=== PATIENT | male | born 1950 | race Two or more races ===

== ENCOUNTER 2016-12-18 10:14 | Outpatient (CLI) | payer MEDICARE, BC ==
[~2016-12-18 10:14] MED LIST: ASPI81TA2 PO; BUPR300T54 PO; CARV6.252 PO; CHOL100044 PO; GEMF600T3 PO; HYDR25TA4 PO; Hydralazine Hcl PO; Hydrochlorothiazide PO; Isosorbide Dinitrate PO; LISI20TA61 PO; MECL-138 PO; METF850T2 PO; METH5TAB6 PO; TRAZ-144 PO
== END 2016-12-18 23:59 | disposition home or self-care (01) ==
LOC: US 10:14
PROVIDERS: ATTEND Internal Medicine Hematology & Oncology
DX: N28.1 Cyst of kidney, acquired (principal); N28.89 Other specified disorders of kidney and ureter; N40.0 Benign prostatic hyperplasia without lower urinary tract symptoms; N39.43 Post-void dribbling; M81.0 Age-related osteoporosis without current pathological fracture
CPT/HCPCS: 76770-TC

== ENCOUNTER 2017-01-24 19:05 | Emergency (ER) | payer MEDICARE, BC ==
[~2017-01-24] VITALS: Ht 177.8 cm; Wt 90.7 kg
--- NOTE | 2017-01-24 19:40 | NUR ---
PT AMBULATORY TO ER BED 8 PT C/O 2ND RIGHT FINGER SWELLING X 2 DAYS PT DENIES TRAUMA OR INJURY. PT AOX4 RR EVEN AND UNLABORED. NO SOB NOTED. NAD NOTED. NO NVD AT THIS TIME. PT NOT DIAPHORETIC. PT WAITING FOR MD HAYNES.
--- NOTE | 2017-01-24 19:43 | NUR ---
DR. SMITH AT BEDSIDE FOR EVAL.
[2017-01-24] MEDS ORDERED: TRAMADOL HCL 50 MG TABLET PO ONE (20:00)
[2017-01-24 20:06] LABS: BASOPHILS % (AUTO) 0.4 % (0.0-2.0); EOSINOPHILS # (AUTO) 0.1 /CMM (0.0-0.7); EOSINOPHILS % (AUTO) 1.4 % (0.0-6.0); HEMATOCRIT 42 % (39-51); HEMOGLOBIN 13.4 g/dL (13.5-17.5); LYMPHOCYTES # (AUTO) 1.9 /CMM (0.8-4.8); LYMPHOCYTES % (AUTO) 30.7 % (20.0-44.0); MEAN CORPUSCULAR HEMOGLOBIN 27 PG (26.0-33.0); MEAN CORPUSCULAR HGB CONC 32 g/dl (31.0-36.0); MEAN CORPUSCULAR VOLUME 84 fL (80-96); MONOCYTES # (AUTO) 0.5 /CMM (0.1-1.30); NEUTROPHILS # (AUTO) 3.7 /CMM (1.8-8.9); NEUTROPHILS % (AUTO) 59.5 % (43.0-81.0); PLATELET COUNT (AUTO) 227 /CMM (150-450); RED BLOOD CELL COUNT(AUTO) 5.01 MIL/uL (4.5-6.0); WHITE BLOOD COUNT (AUTO) 6.2 K/uL (4.3-11.0)
[2017-01-24] MEDS ORDERED: TRAMADOL HCL 50 MG TABLET ONE (20:11)
[2017-01-24 20:19] LABS: CALCIUM, SERUM 9.1 mg/dL (8.5-10.1); CREATININE 2.1 mg/dL (0.6-1.3); POTASSIUM 3.6 mmol/L (3.5-5.1)
--- NOTE | 2017-01-24 20:19 | NUR ---
XRAY AT BEDSIDE
[2017-01-24 21:45] VITALS: BP 143/82
--- NOTE | 2017-01-24 21:45 | NUR ---
Patient discharged to home in stable condition. Written and verbal after care instructions given. Patient verbalizes understanding of instruction. Pt ambulatory with a steady gait. VSS, NAD noted on DC. Pt denies complaint on DC.
== END 2017-01-24 21:46 | disposition home or self-care (01) ==
LOC: ER 19:09
DX: M10.9 Gout, unspecified (principal); I10 Essential (primary) hypertension; E11.65 Type 2 diabetes mellitus with hyperglycemia; J44.9 Chronic obstructive pulmonary disease, unspecified; I25.2 Old myocardial infarction; N28.9 Disorder of kidney and ureter, unspecified; I48.91 Unspecified atrial fibrillation; Z79.82 Long term (current) use of aspirin; Z87.891 Personal history of nicotine dependence; Z90.49 Acquired absence of other specified parts of digestive tract
CPT/HCPCS: 36415; 73130; 80048; 84550; 85025; 99285; A4606; Z7610

== ENCOUNTER 2018-09-10 18:43 | Inpatient (IN) | payer MEDICARE, MEDICAID ==
[~2018-09-10] VITALS: Ht 182.9 cm; Wt 113.4 kg
[~2018-09-10 18:43] MED LIST changes: +ASPI-1169 PO; -ASPI81TA2 PO; -GEMF600T3 PO; +GEMF600T5 PO; +METF-441 PO; -METF850T2 PO; -TRAZ-144 PO; +TRAZ-182 PO
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
[2018-09-10] MEDS ORDERED: CLONIDINE HCL 0.1 MG TABLET ONE (21:29)
[2018-09-10 21:44] LABS: BASOPHILS % (AUTO) 0.5 % (0.0-2.0); EOSINOPHILS % (AUTO) 1.7 % (0.0-6.0); HEMATOCRIT 42 % (39-51); HEMOGLOBIN 14.2 g/dL (13.5-17.5); LYMPHOCYTES % (AUTO) 28.9 % (20.0-44.0); MEAN CORPUSCULAR HGB CONC 34 g/dl (31.0-36.0); MEAN CORPUSCULAR VOLUME 84 fL (80-96); MONOCYTES # (AUTO) 0.6 /CMM (0.1-1.30); MONOCYTES % (AUTO) 8.6 % (2.0-12.0); NEUTROPHILS # (AUTO) 4.2 /CMM (1.8-8.9); NEUTROPHILS % (AUTO) 60.3 % (43.0-81.0); PLATELET COUNT (AUTO) 204 /CMM (150-450); RED BLOOD CELL COUNT(AUTO) 5.03 MIL/uL (4.5-6.0)
--- NOTE | 2018-09-10 21:47 | NUR ---
REPORTED BP TO DR. NATH, WITH A VERBAL ORDER FOR CLONIDINE 0.1MG PO X1.
[2018-09-10 21:55] LABS: CALCIUM, SERUM 8.9 mg/dL (8.5-10.1); CREATININE 1.7 mg/dL (0.6-1.3); POTASSIUM 3.5 mmol/L (3.5-5.1)
[2018-09-10] MEDS ORDERED: CLONIDINE HCL 0.1 MG TABLET PO ONE (22:00)
[2018-09-10 22:01] LABS: ALBUMIN 3.8 g/dL (3.4-5.0); BILIRUBIN,DIRECT 0.2 mg/dL (0.0-0.2); BILIRUBIN,TOTAL 0.7 mg/dL (0.2-1.0); TOTAL PROTEIN, SERUM 7.4 g/dL (6.4-8.2)
--- NOTE | 2018-09-10 23:22 | NUR ---
322-2 TELE ADMITTING DX [facility]
[2018-09-10] MEDS ORDERED: ASPIRIN 325 MG TABLET ONE (23:26)
[2018-09-10] MEDS ORDERED: ASPIRIN EC 325 MG TABLET.DR PO ONE (23:30)
--- NOTE | 2018-09-10 23:33 | NUR ---
REPORT GIVEN TO CARLEEN GOODE FOR CHEVY
[2018-09-10] MEDS ORDERED: SPIR25TA PO (23:42)
[2018-09-10] MEDS ORDERED: HYDR100T27 PO (23:42)
[2018-09-10] MEDS ORDERED: ROSU40TA PO (23:42)
[2018-09-10] MEDS ORDERED: RANO500T3 PO (23:42)
[2018-09-10] MEDS ORDERED: RIVA10TA PO (23:42)
[2018-09-10] MEDS ORDERED: LEVO75TA7 PO (23:42)
[2018-09-10] MEDS ORDERED: CARV12.52 PO (23:42)
[2018-09-10] MEDS ORDERED: SITA50TA PO (23:42)
[2018-09-10] MEDS ORDERED: CLON0.1T PO (23:42)
[2018-09-10] MEDS ORDERED: ALLO100T PO (23:42)
[2018-09-10] MEDS ORDERED: EZET10TA14 PO (23:42)
[2018-09-11] MEDS ORDERED: DEXTROSE 50%-WATER 50 ML DISP.SYRIN IV PRN
--- NOTE | 2018-09-11 00:16 | NUR ---
TRANSPORTED PT TO ROOM 322-2 TELE
--- NOTE | 2018-09-11 00:30 | NUR ---
MASK DESIGNER OPENING NOTES RECEIVED PATIENT VIA GURNEY FROM ER IN STABLE CONDITION. NO C/O PAIN OR DISCOMFORT. NO RESPIRATORY DISTRESS NOTED. VITALS WNL. PERIPHERAL LINE INTACT AND PATENT. MESFIN TABLEAU ARCHITECT AT BEDSIDE. ENCOURAGED USE OF CALL LIGHT FOR ASSISTANCE AND VERBALIZED GOOD UNDERSTANDING. BED IN LOW LOCK SETTING. WILL CONTINUE TO MONITOR.
[2018-09-11] MEDS ORDERED: TEMAZEPAM 7.5 MG CAPSULE PO PRN (01:00)
[2018-09-11] MEDS ORDERED: Z GUARD REMEDY 2 OZ OINT TP PRN (01:00)
[2018-09-11] MEDS ORDERED: hydrALAZINE HCL 50 MG TABLET PO PRN (01:00)
[2018-09-11] MEDS ORDERED: HYDROCODONE/APAP 5/325MG 1 EACH TABLET PO PRN (01:00)
[2018-09-11] MEDS ORDERED: MAG HYDROX/AL HYDROX/SIMETH 30 ML UDC PO PRN (01:00)
[2018-09-11] MEDS ORDERED: ACETAMINOPHEN 325 MG TABLET PO PRN (01:00)
[2018-09-11] MEDS ORDERED: MAGNESIUM HYDROXIDE 30 ML UDC PO PRN (01:00)
[2018-09-11] MEDS: CLONIDINE HCL 0.1 MG TABLET PO SCH ×3 (01:00→16:13)
[2018-09-11] MEDS ORDERED: ONDANSETRON HCL/PF 4 MG/2 ML VIAL IVP PRN (01:00)
[2018-09-11] MEDS: ATORVASTATIN 40 MG TABLET PO SCH ×2 (01:33→22:01)
[2018-09-11] MEDS: CARVEDILOL 12.5 MG TABLET PO SCH ×3 (01:33→16:13)
--- NOTE | 2018-09-11 03:00 | NUR ---
PATIENT ASLEEP IN BED AND NOTED WITH HR FLUCTUATING BETWEEN 30-58 BMP WITH O2 SAT 88-90%.BP STABLE AT 131/83. PRN 02 ADMINISTERED AT 2LPM VIA NS AND EFFECTIVE WITH SP02 STABLE AT 97%. PATIENT AROUSABLE AND REMAINS A/O X4. NO C/O CHEST PAIN, DIZZINESS, HEADACHE, BLURRED VISION. PATIENT DENIES HX OF SLEEP APNEA OR ANY SLEEP DISORDERS. STAT EKG ORDERED. RALPH PNEUMATIC SYSTEMS OPERATOR AWARE WITH NO FURTHER ORDERS. WILL CONTINUE TO MONITOR.
[2018-09-11 04:00] VITALS: BP 131/83
--- NOTE | 2018-09-11 06:39 | NUR ---
COMMUNICATIONS PROJECT LEAD CLOSING NOTES PATIENT ASLEEP AND EASILY AROUSABLE IN BED WITH NO DISTRESS NOTED. HR 40-60 BPM. NO RESPIRATORY DISTRESS NOTED. O2 AT 2LPM VIA NC. NO C/O PAIN OR DISCOMFORT. PERIPHERAL LINE INTACT AND PATENT. NPO STATUS OBSERVED AND MAINTAINED AT ALL TIMES. BED IN LOW LOCK SETTING. ALL BELONGINGS KEPT NEAR BEDSIDE. WILL ENDORSE TO ONCOMING SHIFT. Addendum: 09/11/18 at 0702 by SUDHEER LEO RN AM FSBS CHECK 159. 2 UNITS SLIDING SCALE REGULAR INSULIN HELD D/T NPO STATUS
[2018-09-11] MEDS: BLOOD SUGAR DIAGNOSTIC 1 EACH STRIP IN SCH ×4 (07:01→22:00)
[2018-09-11 07:26] LABS: BASOPHILS % (AUTO) 0.5 % (0.0-2.0); EOSINOPHILS % (AUTO) 1.6 % (0.0-6.0); HEMATOCRIT 38 % (39-51); HEMOGLOBIN 13.1 g/dL (13.5-17.5); LYMPHOCYTES # (AUTO) 1.8 /CMM (0.8-4.8); MEAN CORPUSCULAR HGB CONC 34 g/dl (31.0-36.0); MEAN CORPUSCULAR VOLUME 82 fL (80-96); MONOCYTES # (AUTO) 0.6 /CMM (0.1-1.30); MONOCYTES % (AUTO) 9.5 % (2.0-12.0); NEUTROPHILS # (AUTO) 3.5 /CMM (1.8-8.9); NEUTROPHILS % (AUTO) 58.4 % (43.0-81.0); PLATELET COUNT (AUTO) 192 /CMM (150-450); RED BLOOD CELL COUNT(AUTO) 4.61 MIL/uL (4.5-6.0)
[2018-09-11] MEDS: LEVOTHYROXINE SODIUM 75 MCG TABLET PO SCH (07:30)
--- NOTE | 2018-09-11 07:45 | NUR ---
RN INITIAL NOTES PT AWAKE AND AMBULATORY, NAD, NO CHEST PAIN AND NO SOB.NOTED WITH BLE EDEMA. SAFETY ENSURED. AFIB ON THE MONITOR HR = 46.
[2018-09-11 07:49] LABS: CALCIUM, SERUM 8.5 mg/dL (8.5-10.1); CREATININE 1.5 mg/dL (0.6-1.3); MAGNESIUM 1.8 mg/dL (1.8-2.4); PHOSPHORUS 3.9 mg/dL (2.5-4.9); POTASSIUM 3.1 mmol/L (3.5-5.1)
--- NOTE | 2018-09-11 07:55 | NUR ---
RN NOTES RECEIVED REPORT FROM LAB([facility]) RE TROPONIN = 0.726;DR DAVIS IN THE UNIT AND INFORMED RE RESULT; PT ASYMPTOMATIC. DR DAVIS SAID HE WILL SEE PT.
[2018-09-11 08:00] VITALS: BP_SYST 156; BP_SYST 171; BP_DIAS 88; BP_DIAS 97
[2018-09-11] MEDS ORDERED: SPIRONOLACTONE 25 MG TABLET PO SCH (09:00)
[2018-09-11] MEDS ORDERED: ASPIRIN 81 MG TAB.CHEW PO SCH (09:00)
[2018-09-11] MEDS: LINAGLIPTIN 5 MG TABLET PO SCH (09:03)
[2018-09-11] MEDS: EZETIMIBE 10 MG TABLET PO SCH (09:03)
[2018-09-11] MEDS: HYDROCHLOROTHIAZIDE 25 MG TABLET PO SCH (09:04)
[2018-09-11] MEDS: ALLOPURINOL 100 MG TABLET PO SCH (09:04)
[2018-09-11] MEDS: RIVAROXABAN 15 MG TABLET PO SCH (09:06)
[2018-09-11] MEDS: POTASSIUM CHLORIDE 20 MEQ TAB.PRT.SR PO SCH ×3 (09:24→11:00)
[2018-09-11] MEDS: IV NS 0.9% 1,000 ML IV PRN (09:25)
--- NOTE | 2018-09-11 10:00 | NUR ---
rn notes pt seen and assessed by Dr Diamond; informed MD re troponin level=0.673. verbal diet order obtained from MD; noted and carried out.
[2018-09-11] MEDS ORDERED: POTASSIUM CHLORIDE 20 MEQ TAB.PRT.SR PO ONE (12:30)
--- NOTE | 2018-09-11 12:32 | NUR ---
rn notes unable to remove 3rd dose of KDur from omnicel; 3rd dose reordered.
[2018-09-11 15:03] LABS: APPEARANCE,URINE Clear (CLEAR); BILIRUBIN,URINE Negative (NEGATIVE); BLOOD, URINE Trace-lysed Ery/uL (NEGATIVE); COLOR,URINE Yellow (YELLOW); KETONES,URINE Negative (NEGATIVE); LEUKOCYTE ESTERASE ,URINE Negative (NEGATIVE); NITRITE, URINE Negative (NEGATIVE); PROTEIN,URINE 100 mg/dl (NEGATIVE); UGLUCOSE 100 MG/DL mg/dL (NEGATIVE)
[2018-09-11 15:27] LABS: BACTERIA,URINE Rare /HPF (None Seen); SQUAMOUS EPITHELIAL CELL,UR Few /HPF (None Seen); WBC,URINE NONE SEEN /HPF (0-3)
[2018-09-11 15:54] VITALS: BP 144/79
[2018-09-11 16:00] VITALS: BP 144/79
[2018-09-11] MEDS: INSULIN REGULAR, HUMAN 100 UNIT/ML 3 ML VIAL SQ PRN ×2 (17:01→17:06)
--- NOTE | 2018-09-11 18:03 | NUR ---
rn notes pt refused insulin coverage , risk and benefits explained but pt said he doesnt like insulin
--- NOTE | 2018-09-11 19:31 | NUR ---
rn dheeraj noted endorsed pt in stable condition to next shift rn for continuity of care
--- NOTE | 2018-09-11 19:35 | NUR ---
TELE/RN NOTES RECEIVED PT. SITTING UP IN CHAIR. PT. IS AWAKE, ALERT AND ORIENTED X3. BREATHING EVEN AND UNLABORED ON ROOM AIR. NO SOB, RESPIRATORY DISTRESS OR COMPLAINTS OF PAIN NOTED AT THIS TIME. NO COMPLAINTS OF CHEST PAIN NOTED AT THIS TIME. PT. WITH EXTERNAL CONCRETE PUMP OPERATOR PRESENT AND INTACT. CURRENT RHYTHM = AFIB HR 54. PT. WITH RIGHT FOREARM 20 GAUGE IV SALINE LOCK PRESENT, PATENT AND INTACT. CALL LIGHT WITHIN REACH, WILL CONTINUE TO MONITOR.
[2018-09-11 20:00] VITALS: BP 139/70
[2018-09-11] MEDS ORDERED: RANEXA 500 MG PO SCH (21:00)
[2018-09-12] VITALS: BP 141/96
[2018-09-12 04:11] VITALS: BP 155/85
[2018-09-12 06:26] LABS: BASOPHILS % (AUTO) 0.6 % (0.0-2.0); EOSINOPHILS % (AUTO) 1.7 % (0.0-6.0); HEMATOCRIT 40 % (39-51); HEMOGLOBIN 13.6 g/dL (13.5-17.5); LYMPHOCYTES # (AUTO) 1.8 /CMM (0.8-4.8); LYMPHOCYTES % (AUTO) 28.1 % (20.0-44.0); MEAN CORPUSCULAR HGB CONC 34 g/dl (31.0-36.0); MEAN CORPUSCULAR VOLUME 83 fL (80-96); MONOCYTES # (AUTO) 0.6 /CMM (0.1-1.30); MONOCYTES % (AUTO) 9.2 % (2.0-12.0); NEUTROPHILS % (AUTO) 60.4 % (43.0-81.0); PLATELET COUNT (AUTO) 183 /CMM (150-450); RED BLOOD CELL COUNT(AUTO) 4.81 MIL/uL (4.5-6.0); WHITE BLOOD COUNT (AUTO) 6.6 K/uL (4.3-11.0)
--- NOTE | 2018-09-12 06:29 | NUR ---
TELE/RN NOTES PT. IS LYING IN BED RESTING. BREATHING EVEN AND UNLABORED ON 2LPM O2 VIA NC. NO SOB, RESPIRATORY DISTRESS OR COMPLAINTS OF PAIN NOTED AT THIS TIME AND THROUGHOUT SHIFT. NO COMPLAINTS OF CHEST PAIN NOTED AT THIS TIME AND THROUGHOUT SHIFT. PT. WITH EXTERNAL CUSTOMER QUALITY ENGINEER PRESENT AND INTACT, CURRENT RHYTHM = AFIB HR 41. PT. WITH RIGHT FOREARM 20 GAUGE IV SALINE LOCK PRESENT, PATENT AND INTACT. ALL PT. NEEDS MET. CALL LIGHT WITHIN REACH, WILL ENDORSE TO DAYSHIFT NURSE FOR CONTINUITY OF CARE.
[2018-09-12 06:45] LABS: ALBUMIN 3.5 g/dL (3.4-5.0); CALCIUM, SERUM 9.2 mg/dL (8.5-10.1); CREATININE 1.6 mg/dL (0.6-1.3); MAGNESIUM 1.8 mg/dL (1.8-2.4); PHOSPHORUS 4.2 mg/dL (2.5-4.9); POTASSIUM 3.7 mmol/L (3.5-5.1); TOTAL PROTEIN, SERUM 6.8 g/dL (6.4-8.2)
--- NOTE | 2018-09-12 07:15 | NUR ---
RN OPENING NOTES RECEIVED PATIENT IN BED RESTING. A/OX3, ABLE TO MAKE NEEDS KNOWN. NOT IN ANY FORM OF DISTRESS. NO SOB. DENIED PAIN OR DISCOMFORT AT THIS TIME. IV ACCESS INTACT AND PATENT. KEPT PATIENT SAFE AND COMFORTABLE. BED IN LOW/LOCKED POSITION, SIDERAILS UPX2,CALL LIGHT IN REACH. WILL CONTINUE TO MONIOTR ACCORDINGLY.
[2018-09-12] MEDS: BLOOD SUGAR DIAGNOSTIC 1 EACH STRIP IN SCH ×4 (07:35→21:22)
[2018-09-12 08:00] VITALS: BP 143/81
[2018-09-12 09:12] LABS: THYROID STIMULATING HORMONE 3.288 uIU/mL (0.358-3.74)
[2018-09-12] MEDS: LINAGLIPTIN 5 MG TABLET PO SCH (09:18)
[2018-09-12] MEDS: LEVOTHYROXINE SODIUM 75 MCG TABLET PO SCH (09:18)
[2018-09-12] MEDS: RIVAROXABAN 15 MG TABLET PO SCH (09:19)
[2018-09-12] MEDS: ALLOPURINOL 100 MG TABLET PO SCH (09:21)
[2018-09-12] MEDS: EZETIMIBE 10 MG TABLET PO SCH (09:21)
[2018-09-12] MEDS: CLONIDINE HCL 0.1 MG TABLET PO SCH ×2 (09:24→17:09)
[2018-09-12] MEDS: HYDROCHLOROTHIAZIDE 25 MG TABLET PO SCH (09:25)
[2018-09-12] MEDS: IV NS 0.9% 1,000 ML IV PRN ×2 (11:48→21:47)
[2018-09-12 12:00] VITALS: BP 142/79
[2018-09-12] MEDS: INSULIN REGULAR, HUMAN 100 UNIT/ML 3 ML VIAL SQ PRN ×3 (12:12→21:42)
[2018-09-12 16:00] VITALS: BP 142/76
--- NOTE | 2018-09-12 19:15 | NUR ---
RN CLOSING NOTES PATIENT IN STABLE CONDITION. NO SIGNIFICANT CHANGE DURING THE SHIFT. ALL NEEDS ATTENDED AND PROVIDED. ALL DUE MEDICATIONS GIVEN ORDERED. KEPT PATIENT SAFE AND COMFORTABLE. BED IN LOCKED/LOW POSITION, SIDERAILS UP, CALL LIGHT IN REACH. ENDORSED TO NIGHT RN FOR CHEVY.
[2018-09-12 20:00] VITALS: BP 142/83
[2018-09-12] MEDS: ATORVASTATIN 40 MG TABLET PO SCH (21:22)
[2018-09-13] VITALS (8 sets, daily range): BP systolic 128–172; BP diastolic 60–88
--- NOTE | 2018-09-13 04:15 | NUR ---
RN NOTE NOTIFIED MESFIN ZAYAS THAT PATIENT IS NPO AFTER MIDNIGHT, PER MESFIN ZAYAS HOLD INSULIN DOSE IN THE AM
--- NOTE | 2018-09-13 04:48 | NUR ---
RN NOTE PATIENT IS NPO DUE TO CTCA TOMORROW, BP 172/83, NOTIFIED MESFIN ZAYAS, PER MESFIN ZAYAS OK TO ADMINISTER HYDRALAZINE 100 MG BY MOUTH NOW
--- NOTE | 2018-09-13 05:40 | NUR ---
RN NOTE RECHECKED BP 120/60, PULSE 64
[2018-09-13] MEDS: BLOOD SUGAR DIAGNOSTIC 1 EACH STRIP IN SCH ×2 (06:40→12:06)
--- NOTE | 2018-09-13 06:47 | NUR ---
RN NOTE PATIENT RESTED WELL AT NIGHT, STABLE, NO CHEST PAIN NOTED, ALL SAFETY MEASURES TAKEN, BEDSIDE REPORT PROVIDED
[2018-09-13 07:22] LABS: BASOPHILS % (AUTO) 0.4 % (0.0-2.0); EOSINOPHILS % (AUTO) 1.7 % (0.0-6.0); HEMATOCRIT 41 % (39-51); HEMOGLOBIN 13.8 g/dL (13.5-17.5); LYMPHOCYTES # (AUTO) 1.7 /CMM (0.8-4.8); LYMPHOCYTES % (AUTO) 23.5 % (20.0-44.0); MEAN CORPUSCULAR HGB CONC 34 g/dl (31.0-36.0); MEAN CORPUSCULAR VOLUME 82 fL (80-96); MONOCYTES # (AUTO) 0.7 /CMM (0.1-1.30); MONOCYTES % (AUTO) 9.3 % (2.0-12.0); NEUTROPHILS # (AUTO) 4.8 /CMM (1.8-8.9); NEUTROPHILS % (AUTO) 65.1 % (43.0-81.0); PLATELET COUNT (AUTO) 193 /CMM (150-450); RED BLOOD CELL COUNT(AUTO) 4.94 MIL/uL (4.5-6.0); WHITE BLOOD COUNT (AUTO) 7.4 K/uL (4.3-11.0)
[2018-09-13 07:31] LABS: ALBUMIN 3.6 g/dL (3.4-5.0); CALCIUM, SERUM 8.8 mg/dL (8.5-10.1); CREATININE 1.5 mg/dL (0.6-1.3); MAGNESIUM 1.6 mg/dL (1.8-2.4); PHOSPHORUS 3.8 mg/dL (2.5-4.9); TOTAL PROTEIN, SERUM 6.9 g/dL (6.4-8.2)
[2018-09-13 07:37] LABS: POTASSIUM 2.7 mmol/L (3.5-5.1)
--- NOTE | 2018-09-13 07:39 | NUR ---
TOBY MAKER OPENING NOTES RECEIVED PT LAYING IN BED, RESTING COMFORTABLY. PT IS EASILY AROUSABLE, A/O X4, AFEBRILE. RESPIRATIONS ARE EVEN AND UNLABORED, NOT IN ANY ACUTE DISTRESS NOTED. PT DENIES ANY PAIN AT THIS TIME, NO C/O SOB, N/V. PT IS SEEN WALKING INDEPENDENTLY W/ NO DIFFICULTY. IV SITE TO RFA INTACT, NO INFILTRATION NOTED. DRESSING KEPT CLEAN AND DRY. IV FLUIDS RUNNING AT 75ML/HR, TOLERATING WELL. PT IS KEPT NPO. SAFETY MEASURES ARE IN PLACE. INSTRUCTED PT TO USE CALL LIGHT WHEN ASSISTANCE IS NEEDED, CALL LIGHT IS LEFT WITHIN REACH. WILL MONITOR THROUGHOUT SHIFT FOR CONTINUITY OF CARE.
[2018-09-13] MEDS: LEVOTHYROXINE SODIUM 75 MCG TABLET PO SCH (08:40)
[2018-09-13] MEDS: EZETIMIBE 10 MG TABLET PO SCH (08:40)
[2018-09-13] MEDS: LINAGLIPTIN 5 MG TABLET PO SCH (08:40)
[2018-09-13] MEDS: ALLOPURINOL 100 MG TABLET PO SCH (08:40)
[2018-09-13] MEDS: CLONIDINE HCL 0.1 MG TABLET PO SCH ×2 (08:41→16:26)
[2018-09-13] MEDS: IV NS 0.9% 1,000 ML IV PRN (08:41)
[2018-09-13] MEDS: HYDROCHLOROTHIAZIDE 25 MG TABLET PO SCH (08:41)
[2018-09-13] MEDS: RIVAROXABAN 15 MG TABLET PO SCH (08:47)
--- NOTE | 2018-09-13 09:31 | NUR ---
WINEMAKER NOTES-- PT SEEN AND EXAMINED BY DR. SUSAN Pastor/ ORDERS FOR CTA TODAY. CONSENT SIGNED.
[2018-09-13] MEDS ORDERED: Magnesium 1GM/D5W 100ML PREMIX 100 ML IV SCH (10:00)
[2018-09-13] MEDS: POTASSIUM CHLORIDE 20 MEQ TAB.PRT.SR PO SCH ×5 (10:21→14:12)
[2018-09-13] MEDS: INSULIN REGULAR, HUMAN 100 UNIT/ML 3 ML VIAL SQ PRN (12:08)
[2018-09-13] MEDS ORDERED: IOHEXOL-350 100 ML VIAL IV ONE (14:50)
[2018-09-13] MEDS ORDERED: CT SWABBABLE VALVE TRANS SET 1 EA INFUS.SET MC ONE (14:50)
--- NOTE | 2018-09-13 14:50 | NUR ---
MS RN NOTES-- PT P/U BY RADIOLOGY FOR CTA IN STABLE CONDITION.
[2018-09-13] MEDS ORDERED: NITROGLYCERIN 0.4 MG/TAB BOTTLE SL ONE (15:30)
[2018-09-13] MEDS ORDERED: IV NS 0.9% 500 ML IV PRN (15:30)
--- NOTE | 2018-09-13 17:20 | NUR ---
MS RN NOTES-- RELAYED CTA RESULTS TO DR. DAVIS WITH THE "CLEAR TO GO HOME."
--- NOTE | 2018-09-13 17:45 | NUR ---
MS BENCH EXAMINER NOTE PT DISCHARGED TO HOME IN STABLE CONDITION VIA PERSONAL VEHICLE ACCOMPANIED BY SON. PT IS A/O X4, AFEBRILE. RESPIRATIONS ARE EVEN AND UNLABORED, NOT IN ANY ACUTE DISTRESS NOTED. PT DENIES ANY PAIN AT THIS TIME, NO C/O SOB, N/V. PUPILS ARE REACTIVE TO LIGHT, BILATERAL HAND WATCH SUPERVISOR ARE STRONG AND EQUAL. ABDOMEN IS SOFT AND NONDISTENDED, BOWEL SOUNDS ARE PRESENT IN ALL 4 QUADRANTS UPON AUSCULTATION. DENIES ANY BLADDER DISCOMFORT. IV SITE REMOVED, APPLIED PRESSURE AND TOLERATED WELL. ID BANDS REMOVED. EXPLAINED DISCHARGE PAPERWORK TO PT AND SON WITH VERBAL AND WRITTEN UNDERSTANDING. ALL BELONGINGS SENT WITH PT. PT IS AMBULATORY AND REFUSES FOR WALKER OR W/C. PT ACCOMPANIED TO VEHICLE WITH SON AND 1 STAFF ASSIST. PET LEFT IN STABLE CONDITION.
--- NOTE | 2018-09-15 17:47 | NUR ---
CALLED PT'S DAUGHTER,LESLIE-PT SPEAKS SAMI ONLY.LESLIE ANSWERED ALL THE QUESTIONS.PT WENT TO SEE HIS PMD AND FORENSIC ARTIST POST DISCHARGE.
== END 2018-09-13 17:40 | disposition home or self-care (01) | DRG 280 ==
LOC: ER 18:49 → TELE 23:53 → MED 09-12 18:27 → TELE 09-12 22:50 → MED 09-13 10:51
PROVIDERS: ADMIT Nurse Practitioner Acute Care
DX: I21.4 Non-ST elevation (NSTEMI) myocardial infarction (principal); N17.0 Acute kidney failure with tubular necrosis; I13.0 Hypertensive heart and chronic kidney disease with heart failure and stage 1 through stage 4 chronic kidney disease, or unspecified chronic kidney disease; D68.59 Other primary thrombophilia; I16.0 Hypertensive urgency; I48.91 Unspecified atrial fibrillation; E11.51 Type 2 diabetes mellitus with diabetic peripheral angiopathy without gangrene; E11.22 Type 2 diabetes mellitus with diabetic chronic kidney disease; I50.9 Heart failure, unspecified; N18.9 Chronic kidney disease, unspecified; E66.01 Morbid (severe) obesity due to excess calories; Z68.33 Body mass index [BMI] 33.0-33.9, adult; I25.10 Atherosclerotic heart disease of native coronary artery without angina pectoris; V43.54XA Car driver injured in collision with van in traffic accident, initial encounter; Y92.410 Unspecified street and highway as the place of occurrence of the external cause; E78.5 Hyperlipidemia, unspecified; F41.9 Anxiety disorder, unspecified; I25.2 Old myocardial infarction; K21.9 Gastro-esophageal reflux disease without esophagitis; Z79.01 Long term (current) use of anticoagulants; Z79.82 Long term (current) use of aspirin; Z79.84 Long term (current) use of oral hypoglycemic drugs; Z87.891 Personal history of nicotine dependence; M54.5 Low back pain
CPT/HCPCS: 36415; 70450-TC; 71045-TC; 72125-TC; 75574; 80048-TC; 80053-TC; 80061-TC; 80076-TC; 81000-TC; 82962-TC; 83735-TC; 84100-TC; 84439-TC; 84443-TC; 84484-TC; 85025-TC; 85730-TC; 87081-TC; 93307-TC; A6402; G0378; J1815; J3475; J7030; Q9967

== ENCOUNTER 2019-02-04 10:57 | Emergency (ER) | payer MEDICARE, MEDICAID ==
[~2019-02-04] VITALS: Ht 167.6 cm; Wt 68.0 kg
[~2019-02-04 10:57] MED LIST changes: +ALLO100T PO; -BUPR300T54 PO; +CARV12.52 PO; -CARV6.252 PO; -CHOL100044 PO; +CLON0.1T PO; +EZET10TA14 PO; -GEMF600T5 PO; +HYDR100T27 PO; -Hydralazine Hcl PO; -Hydrochlorothiazide PO; -Isosorbide Dinitrate PO; +LEVO75TA7 PO; -LISI20TA61 PO; -MECL-138 PO; -METH5TAB6 PO; +RANO500T3 PO; +RIVA10TA PO; +ROSU40TA PO; +SITA50TA PO; +SPIR25TA PO; -TRAZ-182 PO
[2019-02-04 11:10] VITALS: BP 154/87
[2019-02-04] MEDS ORDERED: HYDROCODONE/APAP 5/325MG 1 EACH TABLET PO ONE (11:30)
[2019-02-04] MEDS ORDERED: HYDROCODONE/APAP 5/325MG 1 EACH TABLET ONE (11:30)
[2019-02-04] MEDS ORDERED: predniSONE 20 MG TABLET PO ONE (11:30)
[2019-02-04] MEDS ORDERED: predniSONE 20 MG TABLET ONE (11:31)
== END 2019-02-04 11:45 | disposition home or self-care (01) ==
LOC: ER 10:57
DX: M10.9 Gout, unspecified (principal); I10 Essential (primary) hypertension; E11.9 Type 2 diabetes mellitus without complications; Z90.49 Acquired absence of other specified parts of digestive tract; Z87.891 Personal history of nicotine dependence; Z79.899 Other long term (current) drug therapy; Z79.82 Long term (current) use of aspirin; Z79.84 Long term (current) use of oral hypoglycemic drugs
CPT/HCPCS: 99283; J7512

== ENCOUNTER 2019-05-02 12:23 | Emergency (ER) | payer MEDICARE, MEDICAID ==
[~2019-05-02] VITALS: Ht 182.9 cm; Wt 108.9 kg
[~2019-05-02 12:23] MED LIST changes: -EZET10TA14 PO; +EZET10TA16 PO
[2019-05-02 12:30] VITALS: BP 163/105
--- NOTE | 2019-05-02 13:17 | NUR ---
wound care provided
== END 2019-05-02 13:18 | disposition home or self-care (01) ==
LOC: ER 12:25
DX: S50.312A Abrasion of left elbow, initial encounter (principal); S70.312A Abrasion, left thigh, initial encounter; S30.810A Abrasion of lower back and pelvis, initial encounter; I10 Essential (primary) hypertension; E11.9 Type 2 diabetes mellitus without complications; Z90.49 Acquired absence of other specified parts of digestive tract; Z87.891 Personal history of nicotine dependence; Z79.899 Other long term (current) drug therapy; Z79.82 Long term (current) use of aspirin; Z79.84 Long term (current) use of oral hypoglycemic drugs; W01.0XXA Fall on same level from slipping, tripping and stumbling without subsequent striking against object, initial encounter; Y93.89 Activity, other specified; Y92.89 Other specified places as the place of occurrence of the external cause; Y99.8 Other external cause status

== ENCOUNTER 2019-08-29 13:21 | Emergency (ER) | payer MEDICARE, OTHER ==
[~2019-08-29] VITALS: Ht 185.4 cm; Wt 106.6 kg
--- NOTE | 2019-08-29 13:35 | NUR ---
Pt came into the ed c/o dizziness, "room spinning sensation." nausea and vomiting since thursday. Pt aaox4, breathing even and unlabored on room air w/ nad noted. Pt connected to the it applications analyst and pox.
[2019-08-29 14:00] LABS: BASOPHILS % (AUTO) 0.5 % (0.0-2.0); EOSINOPHILS % (AUTO) 0.9 % (0.0-6.0); HEMATOCRIT 47 % (39-51); HEMOGLOBIN 15.9 g/dL (13.5-17.5); LYMPHOCYTES # (AUTO) 1.3 /CMM (0.8-4.8); LYMPHOCYTES % (AUTO) 21.5 % (20.0-44.0); MEAN CORPUSCULAR HGB CONC 34 g/dl (31.0-36.0); MEAN CORPUSCULAR VOLUME 84 fL (80-96); MONOCYTES # (AUTO) 0.4 /CMM (0.1-1.30); MONOCYTES % (AUTO) 6.6 % (2.0-12.0); NEUTROPHILS # (AUTO) 4.4 /CMM (1.8-8.9); NEUTROPHILS % (AUTO) 70.5 % (43.0-81.0); PLATELET COUNT (AUTO) 208 /CMM (150-450); RED BLOOD CELL COUNT(AUTO) 5.61 MIL/uL (4.5-6.0); WHITE BLOOD COUNT (AUTO) 6.2 K/uL (4.3-11.0)
[2019-08-29 14:12] LABS: CREATININE 1.5 mg/dL (0.6-1.3); POTASSIUM 3.1 mmol/L (3.5-5.1)
[2019-08-29 14:16] LABS: ALBUMIN 3.9 g/dL (3.4-5.0); BILIRUBIN,DIRECT 0.3 mg/dL (0.0-0.2); BILIRUBIN,TOTAL 1.3 mg/dL (0.2-1.0); TOTAL PROTEIN, SERUM 7.5 g/dL (6.4-8.2)
[2019-08-29] MEDS ORDERED: ONDANSETRON HCL/PF 4 MG/2 ML VIAL ONE (14:26)
[2019-08-29] MEDS ORDERED: LABETALOL HCL IV 100MG VIAL ONE (14:27)
[2019-08-29] MEDS ORDERED: MECLIZINE HCL 25 MG TABLET ONE (14:27)
[2019-08-29] MEDS ORDERED: LABETALOL HCL IV 100MG VIAL IV ONE (14:30)
[2019-08-29] MEDS ORDERED: MECLIZINE HCL 25 MG TABLET PO ONE (14:30)
[2019-08-29] MEDS ORDERED: ONDANSETRON 4 MG TAB.RAPDIS SL ONE (14:30)
[2019-08-29] MEDS ORDERED: IOHEXOL-350 100 ML VIAL IV ONE (15:34)
[2019-08-29] MEDS ORDERED: IV NS 0.9% 250 ML IV ONE (15:34)
[2019-08-29] MEDS ORDERED: CT SWABBABLE VALVE TRANS SET 1 EA INFUS.SET MC ONE (15:34)
--- NOTE | 2019-08-29 16:45 | NUR ---
Patient is resting comfortably in bed with eyes closed. Easily aroused. VSS
[2019-08-29 17:51] VITALS: BP 152/87
--- NOTE | 2019-08-29 17:51 | NUR ---
Patient discharged to home in stable condition. Written and verbal after care instructions given. Patient verbalizes understanding of instruction.IV removed. Catheter intact and site benign. Pressure and 4x4 applied to site. No bleeding noted.
== END 2019-08-29 17:52 | disposition home or self-care (01) ==
LOC: ER 13:23
DX: R42 Dizziness and giddiness (principal); I10 Essential (primary) hypertension; E78.00 Pure hypercholesterolemia, unspecified; E11.9 Type 2 diabetes mellitus without complications; Z90.49 Acquired absence of other specified parts of digestive tract; Z87.891 Personal history of nicotine dependence; Z79.899 Other long term (current) drug therapy; Z79.82 Long term (current) use of aspirin; Z79.84 Long term (current) use of oral hypoglycemic drugs
CPT/HCPCS: 36415; 70450; 70496; 71045; 80048; 80076; 85025; 85730; 93005; 96374; 99284; J2405; J3490; J7050; J8597; Q9967